=== PATIENT | male | born 1975 | race Caucasian/White ===

== ENCOUNTER 2017-05-28 16:00 | Outpatient (CLI) | END 2017-05-28 16:01 | disposition home or self-care (01) | LOC: FCC-LAB 16:00 | PROVIDERS: ATTEND Family Medicine | DX: L98.9 Disorder of the skin and subcutaneous tissue, unspecified (principal); F14.90 Cocaine use, unspecified, uncomplicated; M54.5 Low back pain; L03.90 Cellulitis, unspecified; M25.571 Pain in right ankle and joints of right foot; G89.29 Other chronic pain; Z11.3 Encounter for screening for infections with a predominantly sexual mode of transmission; Z83.3 Family history of diabetes mellitus | CPT/HCPCS: 36415; 80053; 85025; 86592; 86701; 87800 ==

== ENCOUNTER 2017-06-02 12:41 | Outpatient (CLI) ==
--- NOTE | 2017-06-02 15:15 | DI ---
Exam: Four x-rays of the right ankle. Comparison: None available. Reason for exam: Pain in right ankle. FINDINGS: Orthopedic screw is seen in the right talus. The screw head is not seen. No acute fractur e or dislocation. The talar dome is intact. There is no abnormal widening of the medial or lateral clear space. Degenerative disease is seen with osteophyte formation. Impression: 1. Screw fixation of the talus without evidence of periprosthetic fracture. The right screw heading is not seen on this examination and may have been fractured off. Recommend comparison with previous imaging. 2. No acute fracture or dislocation in the right ankle with moderate degenerative disease
--- NOTE | 2017-06-02 15:15 | DI ---
EXAM: Lumbar spine five views HISTORY: Low back pain COMPARISON: None TECHNIQUE: Five views lumbar spine were performed including oblique views FINDINGS: Sacroiliac joints intact. Sacral arcuate intact. Minimal age indeterminate compression de formity L1. No subluxation. Small multilevel marginal osteophytes. Intervertebral spaces maintained. Mild multilevel facet arthrosis. IMPRESSION: 1. Minimal age determined compression deformity L1. 2. Mild chronic discogenic degenerative disease and facet arthrosis.
== END 2017-06-02 12:42 | disposition home or self-care (01) ==
LOC: RAD 12:41
PROVIDERS: ATTEND Family Medicine
DX: M25.571 Pain in right ankle and joints of right foot (principal); G89.29 Other chronic pain; M54.5 Low back pain

== ENCOUNTER 2017-07-15 13:07 | Outpatient (CLI) | END 2017-07-15 13:08 | disposition home or self-care (01) | LOC: FCC-LAB 13:07 | PROVIDERS: ATTEND Family Medicine | DX: R60.9 Edema, unspecified (principal) | CPT/HCPCS: 36415; 80053; 81001; 83880; 84443; 85025 ==

== ENCOUNTER 2017-08-17 06:46 | Outpatient (CLI) | END 2017-08-17 06:47 | disposition home or self-care (01) | LOC: CAR 06:46 | PROVIDERS: ATTEND Family Medicine | DX: R60.9 Edema, unspecified (principal) ==